=== PATIENT | female | born 1960 | race Caucasian/White ===

== ENCOUNTER 2020-09-25 21:54 | Emergency (ER) | payer BC, MEDICAID, SELFPAY ==
[2018-10-11 16:23] VITALS: BMI 23.1
[2020-09-25 21:55] VITALS: BP 141/66; PULSE 81; RESP 16; TEMP 36.4; O2SAT 95; BMI 23.1
--- NOTE | 2020-09-25 22:31 | RAD_ITS ---
INDICATION: fall, pain EXAMINATION/TECHNIQUE: X-RAY - LEFT XR Hip Unilateral with Pelvis when performed; 2-3 Views COMPARISON: None. FINDINGS: No acute fracture or malalignment. No blastic or lytic lesions. Mild degenerative changes of the hips and lower lumbar spine. The soft tissues are unremarkable. RAD/HIP, UNI W/ Pelvis 2-3 Views IMPRESSION: No acute radiographic abnormalities. Mild degenerative changes of the hips and lower lumbar spine. Electronically Signed: Yair Schwarz MD at 23:27 EDT Tel , Service support ,
[2020-09-25] MEDS: oxyCODONE 5 MG Tablet PO (22:50)
--- NOTE | 2020-09-25 22:59 | ED.DCSUM_ITS ---
- ER Visit Summary Date of Service: 09/25/20 Chief Complaint: Left hip/groin pain History of Present Illness: The patient is a 60 F who has left hip and groin pain. She states that 5 days ago she was at a restaurant and slipped in the bathroom and her left leg slipped out. She is having pain worse with walking. She took nothing for it at home but then tells me she took ibuprofen. She denies any knee pain or back pain except her chronic back pain. She states that she is in pain management in [place] but has been stretching out her medications that she moves her. To [place]. Physical Examination: Vital signs are reviewed. Left hip exam reveals some tenderness in the left groin. There is no hip over the greater trochanter. There is no pain with logroll. She has 2+ DP pulses. Her leg is warm to touch. Her pulses are equal in her feet. Test Results: Left hip x-ray was performed and it shows degenerative changes with no fracture or dislocation. Emergency Department Course and Treatment: Patient was given a dose of oxycodone here. She likely has a strain of the groin due to the mechanism of the fall. I do not suspect any occult fractures at this time. Patient will be discharged with Lidoderm patches. She will follow-up with her PCP. Treatment Plan: [] Disposition: Discharge Impression: Left groin strain This note was generated with tritrue dictation software. It may contain incorrect words, spelling, and punctuation that were not noted in review of the chart prior to signing ED Disposition - Plan for ED Patient: Disposition: Home or Assisted Living Instructions: ED Groin Strain Prescriptions: Lidocaine [Lidoderm Patch] 1 patch TOPICAL DAILY #10 patch Transmission Status: Pending to [id number] Referrals: NOT,DEFINED [NON-STAFF] - Ajay Jones DO [STAFF PHYSICIAN] -
[2020-09-25 23:12] VITALS: BP 129/85; PULSE 70; RESP 17; TEMP 36.6; O2SAT 98
[2020-09-25 23:43] VITALS: BP 130/88; PULSE 78; RESP 18; TEMP 36.6; O2SAT 97
--- NOTE | 2020-09-25 23:49 | ED.RN ---
Called her father and he states he is on his way to get the patient
== END 2020-09-25 23:55 | disposition home or self-care (01) ==
PROVIDERS: Emergency Provider Emergency Medicine
DX: S39.011A Strain of muscle, fascia and tendon of abdomen, initial encounter (principal); W01.0XXA Fall on same level from slipping, tripping and stumbling without subsequent striking against object, initial encounter; Y93.9 Activity, unspecified; Y92.511 Restaurant or cafe as the place of occurrence of the external cause; Y99.8 Other external cause status; J44.9 Chronic obstructive pulmonary disease, unspecified; Z72.0 Tobacco use; Z79.899 Other long term (current) drug therapy
CPT/HCPCS: 73502; 99282

== ENCOUNTER → 2020-10-20 12:35 | Outpatient (CLI) | payer BC, MEDICAID, SELFPAY ==
[2020-09-25 21:55] VITALS: BMI 23.1
--- NOTE | 2020-10-20 12:40 | RAD_ITS ---
STUDY: X-RAY - LUMBAR SPINE REASON FOR EXAM: Female, 60 years old. BACK PAIN TECHNIQUE: 2 view(s) of the lumbar spine were obtained. COMPARISON: None FINDINGS: Normal lumbar lordosis. There is no substantial scoliosis. There is a normal alignment of the vertebrae from L1 to L5. There is a bilateral pars defect, and grade 1 spondylolisthesis at L5/S1. Normal vertebral bodies and endplates. Mild disc space narrowing throughout the lumbar spine. There is no demonstrated fracture. There is atherosclerotic calcification of the abdominal aorta without a demonstrated aneurysm. RAD/Lumbar Spine 2 or 3 Views IMPRESSION: Mild degenerative changes, no demonstrated fracture Bilateral pars defect with grade 1 spondylolisthesis at L4-5 Electronically Signed: Ángel Good MD at 13:07 EDT , Service support ,
--- NOTE | 2020-10-20 12:42 | RAD_ITS ---
STUDY: X-RAY - CERVICAL SPINE REASON FOR EXAM: Female, 60 years old. NECK PAIN TECHNIQUE: 3 view(s) of the cervical spine were obtained. COMPARISON: None FINDINGS: Normal anterior atlantoaxial articulation. Normal odontoid process. There is straightening of the normal cervical lordosis. Normal vertebral bodies and endplates. Normal disc space heights. The soft tissue structures are unremarkable. RAD/Cerv Spine 2 or 3 Views IMPRESSION: Normal x-ray examination of the visualized cervical spine. Electronically Signed: Ángel Good MD at 13:08 EDT , Service support ,
== END ==
PROVIDERS: Referring Provider Anesthesiology Pain Medicine; Visit Provider Anesthesiology Pain Medicine
DX: M54.2 Cervicalgia (principal); M43.16 Spondylolisthesis, lumbar region
CPT/HCPCS: 72040; 72100

== ENCOUNTER 2020-10-21 13:51 | Emergency (ER) | payer BC, MEDICAID, SELFPAY ==
[2020-10-21 13:52] VITALS: BP 152/90; PULSE 106; RESP 17; TEMP 36.4; O2SAT 96; BMI 23.0
--- NOTE | 2020-10-21 14:35 | EDS_ITS ---
HPI History of Present Illness Chief Complaint: Back Informant: patient Onset/Context/Timing Timing: Continuous Current Severity: Mild Maximum Severity: Mild Narrative Narrative: 60-year-old female has chronic back pain has been treated with narcotic pain medications through pain management in [place] for the last 35 years. Patient was seen pain management in [place] recently moved to [place] to help take care of her parents. The pain management doctor she sees here in [place] is Dr. Yuen and he did not feel was appropriate to keep her on her regime of morphine 3 times a day. Patient states that she has chronic neck and back pain. She is never had any neck or back surgery. States she has not had any narcotic pain medication for the last 3 days. She is having withdrawal symptoms such as not nausea, vomiting and diarrhea. Prior similar symptoms: Yes Recent Illness/Hospitalization: No PFSH PFSH Medical History Back pain Shoulder pain Home Medications chlorzoxazone 500 mg tablet 1 tablet PO TID PRN 30 Days #60 tab 10/11/18 [History Last Taken Unknown] morphine 30 mg tablet,extended release 15 mg PO TID PRN 30 Days #90 tab 10/11/18 [History Last Taken Unknown] albuterol sulfate 2 puff INHALATION Q4H PRN PRN 09/25/20 [History Last Taken Unknown] ipratropium-albuterol 1 puff Q6H PRN PRN 09/25/20 [History Last Taken Unknown] lidocaine 1 patch TOPICAL DAILY #10 patch 09/25/20 [Rx Last Taken Unknown] ondansetron HCl [Zofran] 4 mg PO Q6H PRN #10 tab 10/21/20 [Rx Last Taken Unknown] Allergy/AdvReac Type Severity Reaction Status Date / Time Opioids-Methadone and Related Allergy Unknown Vomiting Verified 09/25/20 21:57 mercury (elemental) Allergy Hives Verified 10/21/20 13:57 Sulfa (Sulfonamide Allergy Hives Verified 10/21/20 13:57 Antibiotics) Surgical History History of bladder surgery History of tubal ligation Social History Smoking Status: Former smoker alcohol intake: never ROS ROS ED ROS Narrative 60-year-old female no recent illness is having withdrawal symptoms consistent with being out of her pain meds for the last 3 days. Review of Systems ROS Unobtainable: Denies due to encephalopathy Constitutional Constitutional ED: Denies fever(s) Eyes Eyes: Denies change in vision ENT ENT ED: Denies sore throat Cardiovascular Cardiovascular: Denies chest pain Respiratory/Chest Respiratory/Chest: Denies dyspnea Gastrointestinal Gastrointestinal: Reports diarrhea, nausea and vomiting; Denies abdominal pain Genitourinary Genitourinary ED: Denies dysuria Musculoskeletal Musculoskeletal: Denies myalgias Integumentary Denies rash Neurologic Neurologic: Denies headache(s) Psychiatric Psychiatric: Denies depression Endocrine Endocrinology: Denies polyuria Allergic/Immunologic Allergic/Immunologic ED: Denies urticaria EXAM Physical Exam Narrative Exam Narrative: 60-year-old no acute distress. Vital signs stable afebrile. Patient does not look septic or toxic. She is not dehydrated. Exam basically unremarkable. Const Vital Signs: 10/21/20 13:52 Temperature 97.6 F L Temperature Source Temporal Pulse Rate 106 H Respiratory Rate 17 Blood Pressure 152/90 H Blood Pressure Mean 110 Pulse Ox 96 Oxygen Delivery Method Room Air Positive well nourished and well developed General Appearance ED: well developed HEENT Reports moist mucous membranes Negative for trauma or tenderness Eyes PERRL and EOMs intact bilaterally Neck no lymphadenopathy, supple and no JVD Chest Wall inspection of chest normal Resp normal respiratory effort and clear to auscultation bilaterally Cardio regular rhythm and no murmurs; Negative for regular rate Rate: tachycardic GI normal to inspection, nondistended, normoactive bowel sounds, non-tender and non-distended Palpation: soft Back/Spine no CVA tenderness Back/Spine Narrative: Diffuse musculoskeletal tenderness of the back. Extremity normal to inspection Neuro oriented x3 and CN's II-XII intact bilaterally Sensorium / Orientation: alert; Negative for orientation impaired, lethargic or stuporous Motor Exam: strength 5/5 throughout Psych mental status grossly normal Skin no rashes or lesions noted MDM MDM MDM Narrative Medical decision making narrative: Patient with a 35-year history of chronic pain management treatment. Out of her meds. Symptoms consistent with withdrawal. Requesting that I write her for chronic pain medications. Her pain management physician has already refused this treatment option. I explained the patient we do not treat chronic pain through the emergency department in a long- term chronic narcotic prescription without to be taken care of either through her pain management physicians or her primary care physicians. She will be given 2 [place] here for pain and an IM injection of Zofran for nausea. Discharged with a prescription for Zofran and follow-up with her primary care physician and/or pain management. I did discuss with the patient and strongly encouraged her to consider detox inpatient or outpatient she basically wants nothing to do with that treatment option. She did not want admission. She wants to be transferred to another facility to have someone write her for long- term narcotic medications. Discharge Plan Triage Chief Complaint: Back ED Provider: Horacio Fisher Dx/Rx/DC Orders Clinical Impression: Chronic pain syndrome, Chronic back pain Instructions: ED Back Pain (Acute or Chronic) Prescriptions: New ondansetron HCl [Zofran] 4 mg tablet 4 mg PO Q6H PRN (Reason: nausea and vomiting) Qty: 10 RF: 0 No Action chlorzoxazone 500 mg tablet 1 tablet PO TID PRN (Reason: Not Specified) 30 Days Qty: 60 RF: 0 morphine 30 mg tablet extended release 15 mg PO TID PRN (Reason: Pain 1-10 Or Fever) 30 Days Qty: 90 RF: 0 ipratropium-albuterol 1 PUFF inhaler 1 puff Q6H PRN PRN (Reason: Cough) RF: 0 albuterol sulfate 1 PUFF inhaler 2 puff INHALATION Q4H PRN PRN (Reason: Cough) RF: 0 lidocaine 1 PATCH patch 1 patch TOPICAL DAILY Qty: 10 RF: 0 Primary Care Provider: Care Physician,No Primary Referrals: Clement River MD [NON-STAFF] - As soon as possible Care Physician,No Primary [Primary Care Provider] - Activity Restrictions/Additional Instructions: Follow-up with either your pain management doctor or your primary care physician for discussion of best options for chronic pain management. Zofran as needed for nausea. Disposition Disposition: Home, self care
[2020-10-21] MEDS: HYDROcodone Bitartrate/Apap 5/325 Tablet PO (15:48)
[2020-10-21] MEDS: Ondansetron 4 MG/2 ML Vial IM (15:48)
[2020-10-21 15:57] VITALS: BP 156/87; PULSE 102; RESP 19; O2SAT 95
== END 2020-10-21 16:06 | disposition home or self-care (01) ==
LOC: ED 14:48
PROVIDERS: Emergency Provider Emergency Medicine
DX: M54.9 Dorsalgia, unspecified (principal); G89.4 Chronic pain syndrome; Z87.891 Personal history of nicotine dependence
CPT/HCPCS: 96372; 99283; J2405

== ENCOUNTER 2022-08-18 10:56 | Emergency (ER) | payer MEDICAID, SELFPAY ==
[2022-08-18 10:57] VITALS: BP 160/83; PULSE 109; RESP 14; TEMP 36.9; O2SAT 95; BMI 25.1
[2022-08-18 11:00] VITALS: BP 145/93; PULSE 104; RESP 16; TEMP 36.8; O2SAT 95
[2022-08-18 11:21] LABS: Absolute Lymphocyte Count 1.74 X10^3/uL (0.83-4.51); Absolute Neutrophil Count 3.6 X10^3/uL (2.0-7.7); Basophil# 0.03 X10^3/uL; Basophil% 0.5 % (0-1); Eosinophil# 0.48 X10^3/uL; Eosinophils% 7.6 % (0-5); Hematocrit 47.2 % (37-47); Hemoglobin 15.6 g/dL (12.0-15.0); Lymphocyte # 1.74 X10^3/ul (0.83-4.51); Lymphocyte % 27.5 % (19-41); Mean Corp Hgb Conc 33.1 g/dL (32-36); Mean Corpuscular Volume 96.7 fL (81-99); Mean Platelet Vol. 9.4 fl (6.2-12.0); Monocyte# 0.43 X10^3/uL; Monocyte% 6.8 % (0-10); NRBC Flagged by Analyzer 0 % (0-5); Neutrophil # 3.62 X10^3/uL (2.7-7.7); Neutrophil % 57.3 % (47-70); Platelet Count 341 K/mm3 (150-450); RBC Distribution Width CV 12.6 % (11.6-14.6); RBC Distribution Width SD 45.1 fl (35.1-43.9); Red Blood Count 4.88 M/mm3 (4.2-5.4); White Blood Count 6.3 K/mm3 (4.4-11.0)
--- NOTE | 2022-08-18 11:25 | ED.VIS.DYS ---
HPI <PHUC Tobias - Last Filed: 08/18/22 15:32> History of Present Illness Chief Complaint: Shortness of Breath Narrative Narrative: Patient presenting today with worsening shortness of breath that she has had for the past 3 weeks. She states that she has been having a productive cough as well along with a decreased appetite, increased urination, increased bouts of incontinence, and urinary hesitancy. Patient does have a history of COPD and does not use oxygen at home. She denies any fever, chills, chest pain, and abdominal pain. Yesterday, she stated that she had two episodes of nausea and vomiting but does not feel nauseous today. PFSH <PHUC Tobias - Last Filed: 08/18/22 15:32> [facility] Medical History Back pain COPD (chronic obstructive pulmonary disease) Shoulder pain Spondylitis Home Medications ipratropium 20 mcg-albuterol 100 mcg/actuation mist for inhalation 1 puff inhalation Q6H PRN PRN Cough 09/25/20 [History Last Taken Unknown] ondansetron HCl 4 mg tablet (Zofran) 4 mg PO Q6H PRN nausea and vomiting #10 tabs 10/21/20 [Rx Last Taken Unknown] albuterol sulfate 90 mcg/actuation aerosol inhaler (Ventolin HFA) 1 - 2 puff inhalation Q4H PRN PRN Wheezing ##1 08/18/22 [Rx Last Taken Unknown] budesonide-formoterol HFA 80 mcg-4.5 mcg/actuation aerosol inhaler (Symbicort) 2 puff inhalation BID 08/18/22 [History Last Taken Unknown] chlorzoxazone 500 mg tablet 750 mg PO Q8H muscle spasm 08/18/22 [History Last Taken Unknown] doxycycline monohydrate 100 mg capsule 100 mg PO BID #14 CAPSULES 08/18/22 [Rx Last Taken Unknown] ipratropium 20 mcg-albuterol 100 mcg/actuation mist for inhalation (Combivent Respimat) 1 puff inhalation Q4H 08/18/22 [History Last Taken Unknown] morphine 15 mg immediate release tablet 15 mg PO Q8H PRN Breakthrough Pain 08/18/22 [History Last Taken Unknown] morphine 15 mg tablet,extended release 15 mg PO TID 08/18/22 [History Last Taken Unknown] prednisone 10 mg tablet 10 mg PO UD #33 tabs 08/18/22 [Rx Last Taken Unknown] Allergy/AdvReac Type Severity Reaction Status Date / Time mercury (elemental) Allergy Hives Verified 10/21/20 13:57 Sulfa (Sulfonamide Allergy Hives Verified 10/21/20 13:57 Antibiotics) Opioids-Methadone and Related AdvReac Unknown Vomiting Verified 08/18/22 11:02 Surgical History History of bladder surgery History of tubal ligation Social History Smoking Status: Former smoker alcohol intake: never ROS <PHUC Tobias - Last Filed: 08/18/22 15:32> ROS ED Constitutional Constitutional ED: Denies chills, fever(s) or sweats Eyes Eyes: Denies blurry vision or diplopia ENT ENT ED: Denies rhinorrhea or sore throat Cardiovascular Cardiovascular: Denies chest pain or palpitations Respiratory/Chest Respiratory/Chest: Reports cough, dyspnea, dyspnea on exertion and wheezing Gastrointestinal Gastrointestinal: Denies abdominal pain, constipation, diarrhea, nausea or vomiting Genitourinary Genitourinary ED: Reports urinary frequency and urinary urgency; Denies dysuria or hematuria Musculoskeletal Musculoskeletal: Denies arthralgias, back pain, myalgias or neck pain Integumentary Denies abscess, Abrasions or rash Neurologic Neurologic: Denies confusion, dizziness or paresthesias Psychiatric Psychiatric: Denies anxiety, depression, suicidal ideation or suicidal thoughts EXAM <PHUC Tobias - Last Filed: 08/18/22 15:32> Physical Exam Const Vital Signs: 08/18/22 10:57 08/18/22 11:00 08/18/22 11:02 Temperature 98.4 F 98.2 F Temperature Source Oral Oral Pulse Rate 109 H 104 H Respiratory Rate 14 16 Respiratory Effort Short of Breath Labored Respiratory Depth Deep Respiratory Pattern Normal Blood Pressure 160/83 H 145/93 H Blood Pressure Mean 108 110 Pulse Ox 95 95 Oxygen Delivery Method Room Air Room Air Oxygen Flow Rate (L/min) 08/18/22 11:32 08/18/22 11:32 08/18/22 13:00 Temperature Temperature Source Pulse Rate 75 71 Respiratory Rate 14 19 H Respiratory Effort Respiratory Depth Respiratory Pattern Normal Blood Pressure 131/58 H Blood Pressure Mean 82 Pulse Ox 93 89 Oxygen Delivery Method Nasal Cannula Room Air Oxygen Flow Rate (L/min) 3 08/18/22 13:00 08/18/22 15:00 08/18/22 15:00 Temperature 97.9 F Temperature Source Oral Pulse Rate 70 72 72 Respiratory Rate 17 19 H 19 H Respiratory Effort Respiratory Depth Respiratory Pattern Blood Pressure 131/58 H 117/69 117/69 Blood Pressure Mean 82 85 Pulse Ox 88 89 89 Oxygen Delivery Method Room Air Room Air Oxygen Flow Rate (L/min) 08/18/22 14:00 Temperature 98.0 F Temperature Source Oral Pulse Rate 72 Respiratory Rate 19 H Respiratory Effort Respiratory Depth Respiratory Pattern Blood Pressure 117/69 Blood Pressure Mean 85 Pulse Ox 89 Oxygen Delivery Method Room Air Oxygen Flow Rate (L/min) Positive well nourished and well developed General Appearance ED: well developed HEENT Reports normocephalic and head/scalp atraumatic Mouth ED: Yes moist mucous membranes normal Eyes PERRL and EOMs intact bilaterally Neck full ROM and supple Chest Wall inspection of chest normal Resp Auscultation: rhonchi lower bilaterally and wheezes expiratory wheezes Cardio regular rate and regular rhythm GI soft to palpation, non-tender, non-distended and no masses Back/Spine normal ROM and normal to inspection Extremity normal to inspection and full ROM General Extremety ED: Negative for edema General Extremity: Negative for edema Neuro oriented x3, CN's II-XII intact bilaterally, moves all extremities, no focal motor deficits and no sensory deficits noted Sensorium / Orientation: awake and alert Psych mental status grossly normal and thought process normal Skin no rashes or lesions noted and no wounds <Dr. Kieran Manzo MD - Last Filed: 08/18/22 14:46> Physical Exam Const Vital Signs: 08/18/22 10:57 08/18/22 11:00 08/18/22 11:02 Temperature 98.4 F 98.2 F Temperature Source Oral Oral Pulse Rate 109 H 104 H Respiratory Rate 14 16 Respiratory Effort Short of Breath Labored Respiratory Depth Deep Respiratory Pattern Normal Blood Pressure 160/83 H 145/93 H Blood Pressure Mean 108 110 Pulse Ox 95 95 Oxygen Delivery Method Room Air Room Air Oxygen Flow Rate (L/min) 08/18/22 11:32 08/18/22 11:32 08/18/22 13:00 Temperature Temperature Source Pulse Rate 75 71 Respiratory Rate 14 19 H Respiratory Effort Respiratory Depth Respiratory Pattern Normal Blood Pressure 131/58 H Blood Pressure Mean 82 Pulse Ox 93 89 Oxygen Delivery Method Nasal Cannula Room Air Oxygen Flow Rate (L/min) 3 08/18/22 13:00 08/18/22 15:00 08/18/22 15:00 Temperature 97.9 F Temperature Source Oral Pulse Rate 70 72 72 Respiratory Rate 17 19 H 19 H Respiratory Effort Respiratory Depth Respiratory Pattern Blood Pressure 131/58 H 117/69 117/69 Blood Pressure Mean 82 85 Pulse Ox 88 89 89 Oxygen Delivery Method Room Air Room Air Oxygen Flow Rate (L/min) 08/18/22 14:00 Temperature 98.0 F Temperature Source Oral Pulse Rate 72 Respiratory Rate 19 H Respiratory Effort Respiratory Depth Respiratory Pattern Blood Pressure 117/69 Blood Pressure Mean 85 Pulse Ox 89 Oxygen Delivery Method Room Air Oxygen Flow Rate (L/min) MDM <PHUC Tobias - Last Filed: 08/18/22 15:32> [facility] Narrative Medical decision making narrative: Presenting today with increased shortness of breath that she has had over the past 3 weeks. Patient is 93% on room air on examination and has audible expiratory wheezes. Labs have been obtained and she has been given a DuoNeb breathing treatment. Chest x-ray obtained to rule out infiltrate. Chest x-ray does show a pulmonary nodule this is been discussed with patient, she has been instructed to have this followed up with. Patient has been using her inhalers incorrectly. We have educated her on correct inhaler use and how often to use each one. I do not feel it is necessary to test for COVID or flu as patient has been having the symptoms for the past 3 weeks. Patient has been given Solu-Medrol and additional breathing treatments. Patient does not have a chemical process operator, we have referred her to one. We have ambulated her and patient remained above 90% on room air. On reexamination patient states she is feeling much better and is no longer feeling short of breath. Symptoms can be attributed to a COPD exacerbation. She will be given prednisone and doxycycline. She is to follow-up with her PCP and pulmonology. She will be discharged home in stable condition and is comfortable with plan. Lab Data Labs: Laboratory Results - last 24 hr 08/18/22 08/18/22 08/18/22 11:00 11:00 12:20 WBC 6.3 RBC 4.88 Hgb 15.6 H Hct 47.2 H MCV 96.7 MCH 32.0 MCHC 33.1 RDW Std Deviation 45.1 H RDW Coeff of [place]aine 12.6 Plt Count 341 MPV 9.4 Immature Gran % (Auto) 0.300 Neut % (Auto) 57.3 Lymph % (Auto) 27.5 [place] % (Auto) 6.8 Eos % (Auto) 7.6 H Baso % (Auto) 0.5 Absolute Neuts (auto) 3.6 Absolute Lymphs (auto) 1.74 Nucleated RBC % 0 Sodium 142 Potassium 3.6 Chloride 110 H Carbon Dioxide 25.0 Anion Gap 7 BUN 17 Creatinine 1.35 H Estim Creat Clear Calc 33.74 Est GFR (MDRD) Af Amer 51 L Est GFR (MDRD) Non-Af 42 L BUN/Creatinine Ratio 12.6 Glucose 116 H Calcium 9.1 Urine Color Yellow Urine Clarity Sl. Cloudy Urine pH 6.0 Ur Specific [place] 1.015 Urine Protein 100 H Urine Glucose (UA) Normal Urine Ketones 5 H Urine Occult Blood Negative Urine Nitrite Negative Urine Bilirubin Negative Urine Urobilinogen 1 H Ur Leukocyte Esterase 25 H Urine RBC 0 SEEN Urine WBC 0-5 SEEN Ur Squamous Epith Cells 0-5 SEEN Urine Bacteria 1+ Urine Mucus 0 SEEN Radiography Chest X-Ray - ED: Read by ED Physician and Read by Radiologist Diagnostic Testing: Clinical Impression(s) from Imaging Studies Chest X-Ray 08/18/22 11:44 IMPRESSION: Possible pulmonary nodule at the right lung base; recommend follow-up or CT. Electronically Signed: Radha Jones MD at 12:04 EDT , EKG Initial EKG: Comments: 85 bpm, sinus rhythm with occasional PVCs, no ST elevation. Reviewed and interpreted by attending ED physician. <Dr. Kieran Manzo MD - Last Filed: 08/18/22 14:46> [facility] Lab Data Attestation: I reviewed the patient's lab results. Labs: Laboratory Results - last 24 hr 08/18/22 08/18/22 08/18/22 11:00 11:00 12:20 WBC 6.3 RBC 4.88 Hgb 15.6 H Hct 47.2 H MCV 96.7 MCH 32.0 MCHC 33.1 RDW Std Deviation 45.1 H RDW Coeff of [place] 12.6 Plt Count 341 MPV 9.4 Immature Gran % (Auto) 0.300 Neut % (Auto) 57.3 Lymph % (Auto) 27.5 [place] % (Auto) 6.8 Eos % (Auto) 7.6 H Baso % (Auto) 0.5 Absolute Neuts (auto) 3.6 Absolute Lymphs (auto) 1.74 Nucleated RBC % 0 Sodium 142 Potassium 3.6 Chloride 110 H Carbon Dioxide 25.0 Anion Gap 7 BUN 17 Creatinine 1.35 H Estim Creat Clear Calc 33.74 Est GFR (MDRD) Af Amer 51 L Est GFR (MDRD) Non-Af 42 L BUN/Creatinine Ratio 12.6 Glucose 116 H Calcium 9.1 Urine Color Yellow Urine Clarity Sl. Cloudy Urine pH 6.0 Ur Specific [place] 1.015 Urine Protein 100 H Urine Glucose (UA) Normal Urine Ketones 5 H Urine Occult Blood Negative Urine Nitrite Negative Urine Bilirubin Negative Urine Urobilinogen 1 H Ur Leukocyte Esterase 25 H Urine RBC 0 SEEN Urine WBC 0-5 SEEN Ur Squamous Epith Cells 0-5 SEEN Urine Bacteria 1+ Urine Mucus 0 SEEN Radiography Chest X-Ray - ED: Read by ED Physician, No Acute Disease, Chronic Changes and No Infiltrates Diagnostic Testing: Clinical Impression(s) from Imaging Studies Chest X-Ray 08/18/22 11:44 IMPRESSION: Possible pulmonary nodule at the right lung base; recommend follow-up or CT. Electronically Signed: Radha Jones MD at 12:04 EDT , EKG Initial EKG: Attestation: I personally reviewed and interpreted this EKG as follows: Interpretation: Sinus Rhythm and No Acute Injury Pattern Treatment and Re-Evaluation Comments:: Seen and evaluated independently and in conjunction with physician dental laboratory assistant. Agree with notes above unless documented otherwise. Patient has basically been having a COPD exacerbation gradually worsening over the past 3 weeks. We did some labs, EKG which is unremarkable, and a chest x-ray which on my interpretation 2 views show no evidence of pneumonia. Radiology was in agreement. Speaking in full sentences, prolonged expiratory phase, expiratory wheezes but no rales or rhonchi on exam. Heart regular, no peripheral edema, JVD, or calf tenderness. Radiology also saw a pulmonary nodule on her chest x-ray. I discussed this with her, it is not spiculated and extremely suspicious looking, however in a smoker with COPD she is at risk for lung cancer which we discussed. She needs to follow-up with pulmonology. 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 She was seen a chemical process operator there. She is using her inhalers incorrectly, she is using her Spiriva as a rescue inhaler, we discussed that with her and try to educate her and prescribed her an albuterol rescue, in addition to antibiotics and prednisone. Discharge Plan Triage Chief Complaint: Shortness of Breath ED Midlevel Provider: Anum Onofre ED Provider: Kieran Manzo Dx/Rx/DC Orders Clinical Impression: COPD exacerbation, Pulmonary nodule Instructions: ED COPD Flare Prescriptions: New prednisone 10 mg tablet 10 mg PO UD Qty: 33 0RF Rx Instructions: Take 4 tablets daily for 3 days, then 3 daily for 3 days, then 2 daily for 3 days, then 1 a day for 3 days then 1 QOD for 3 doses. doxycycline monohydrate 100 mg capsule 100 mg PO BID Qty: 14 0RF albuterol sulfate [Ventolin HFA] 90 mcg/actuation HFA aerosol inhaler 1 - 2 puff inhalation Q4H PRN PRN (Reason: Wheezing) Qty: 1 0RF No Action ipratropium-albuterol 1 PUFF inhaler 1 puff inhalation Q6H PRN PRN (Reason: Cough) Label Comments: INHALE 1 PUFF BY MOUTH FOUR TIMES DAILY NEEDED FOR SHORTNESS OF BREATH ondansetron HCl [Zofran] 4 mg tablet 4 mg PO Q6H PRN (Reason: nausea and vomiting) Qty: 10 0RF chlorzoxazone 500 mg tablet 750 mg PO Q8H Label Comments: TAKE 1 &1/2 (ONE & ONE-HALF) TABLETS BY MOUTH THREE TIMES DAILY NEEDED FOR MUSCLE SPASM morphine 15 mg tablet extended release 15 mg PO TID Label Comments: TAKE 1 TABLET BY MOUTH EVERY 8 HOURS FOR PAIN morphine 15 mg tablet 15 mg PO Q8H PRN (Reason: Breakthrough Pain) Label Comments: TAKE 1 TABLET BY MOUTH THREE TIMES DAILY NEEDED FOR PAIN FOR UP 30 DAYS budesonide-formoterol [Symbicort] 80-4.5 mcg/actuation Hfa Aerosol Inhaler 2 puff INHALATION BID Combivent Respimat 20-100 mcg/actuation Mist 1 puff INHALATION Q4H Primary Care Provider: Tracie Patel Referrals: Lamont Whalen MD [Non-Staff] - 3-5 Days NOT,DEFINED [Non-Staff] - Activity Restrictions/Additional Instructions: You can use either the albuterol or Combivent as a rescue inhaler. Please call this week to schedule an appointment to follow-up with pulmonology. Please return for any worsening of symptoms. Disposition Disposition: Home, Self Care Discharge Date/Time: 08/18/22 15:07
[2022-08-18] MEDS: Ipratropium/Albuterol Sulfate 3 ML AMPUL.NEB INHALATION (11:29)
[2022-08-18 11:32] VITALS: PULSE 75; RESP 14; O2SAT 93
[2022-08-18 11:32] LABS: Anion Gap 7 (5-15); BUN 17 mg/dL (7-18); BUN/Creat Ratio 12.6 RATIO (10-20); Calcium,Total 9.1 mg/dL (8.5-10.1); Chloride 110 mmol/L (98-107); Creatinine, Serum 1.35 mg/dL (0.55-1.02); EST Glomerular Filtration Rate 42 mL/min (>60); Est Glom Filt Rate - Afr Amer 51 mL/min (>60); Estimated Creatinine Clearance 33.74 ml/min; Glucose 116 mg/dL (74-106); Potassium 3.6 mmol/L (3.5-5.1); Sodium Level 142 mmol/L (136-145)
--- NOTE | 2022-08-18 11:44 | RAD_ITS ---
HISTORY: SOB. TECHNIQUE: XR Chest 2 Views. COMPARISON: None. FINDINGS: CARDIOMEDIASTINAL BORDERS: Cardiac silhouette within normal limits in size. Calcification of the aortic knob. Calcified subcarinal lymph node. LUNGS: 1.2 cm nodular opacity at the right hemidiaphragm. PLEURA: No pleural effusion or pneumothorax seen. OSSEOUS STRUCTURES: Mild degenerative change. RAD/Chest PA and Lateral IMPRESSION: Possible pulmonary nodule at the right lung base; recommend follow-up or CT. Electronically Signed: Radha Jnoes MD at 12:04 EDT ,
[2022-08-18 12:23] LABS: Mucous, Urine 0 SEEN /hpf (<or=2+); Red Blood Cells-Urine 0 SEEN /hpf (0-5)
[2022-08-18 12:36] LABS: Color, Urine Yellow (Yellow); Glucose, Dipstick Normal (Normal); Ketone-Dipstick 5 mg/dl (Negative); Leukocyte Esterase-Dipstick 25 /ul (Negative); Nitrite-Dipstick Negative (Negative); Occult Blood-Urine Negative /ul (Negative); Protein-Dipstick 100 mg/dl (Negative); Specific Gravity, Urine 1.015 (1.002-1.030); Urine Bilirubin Dipstick Negative (Negative); Urine Clarity Sl. Cloudy (Clear); Urine Urobilinogen 1 mg/dl (Normal)
[2022-08-18 12:48] LABS: Bacteria 1+ /hpf (None Seen); Squamous Epithelial Cells - UA 0-5 SEEN /hpf (5-10); White Blood Cells 0-5 SEEN /hpf (0-5)
[2022-08-18] MEDS: MethylPREDNISolone 125 MG/2 ML Vial IV (12:56)
[2022-08-18 13:00] VITALS: BP 131/58; PULSE 70; PULSE 71; RESP 17; RESP 19; TEMP 36.6; O2SAT 88; O2SAT 89
[2022-08-18] MEDS: Albuterol 2.5 MG/3 ML VIAL.NEB. INHALATION ×2 (13:11)
--- NOTE | 2022-08-18 13:19 | EKG12_ITS ---
Test Reason : SOB Blood Pressure : / mmHG Vent. Rate : 097 BPM Atrial Rate : 097 BPM P-R Int : 122 ms QRS Dur : 076 ms QT Int : 346 ms P-R-T Axes : 078 064 078 degrees QTc Int : 439 ms Normal sinus rhythm with sinus arrhythmia Nonspecific ST abnormality Abnormal ECG Confirmed by POP GARCIA, CRISTY ([id number]), film and video editor DAYNA SAHU ([id number]) on 08/22/2022 12:16:33 P M Referred By: Confirmed By:LUCHO LORD MD
--- NOTE | 2022-08-18 13:31 | NURSING ---
pt had coughing fit and dropped to 83% on ra. o2 reapplied to recover and pt back up to 96% quickly within couple minutes. pt up to amb in halls to see if maintains. desats with walking to 90% and hr 95. will monitor
[2022-08-18 14:00] VITALS: BP 117/69; PULSE 72; RESP 19; TEMP 36.7; O2SAT 89
[2022-08-18 15:00] VITALS: BP 117/69; PULSE 72; RESP 19; O2SAT 89
== END 2022-08-18 15:07 | disposition home or self-care (01) ==
PROVIDERS: Physician Assistant; Emergency Provider Emergency Medicine; PCP Nurse Practitioner Family; Visit Provider Emergency Medicine
DX: J44.1 Chronic obstructive pulmonary disease with (acute) exacerbation (principal); R91.1 Solitary pulmonary nodule; Z87.891 Personal history of nicotine dependence
CPT/HCPCS: 71046; 80048; 81001; 85025; 93005; 94640; 96374; 99283; A4216

== ENCOUNTER 2022-11-27 01:04 | Emergency (ER) | payer MEDICAID, SELFPAY ==
[2022-11-27 01:05] VITALS: BP 157/72; PULSE 67; RESP 18; TEMP 36.9; O2SAT 95; BMI 25.3
--- NOTE | 2022-11-27 01:20 | EX.ED.VIS.HA ---
HPI History of Present Illness Chief Complaint: Headache Informant: patient Narrative Narrative: Patient presents with a left-sided headache. Patient states that this recent she noticed some tingling around the left side of her face mostly in the area of the left cheek. After about 2 hours she started to get pain behind her left eye. The numbness is gone. She never had facial droop or weakness. She had no other neurologic symptoms. She states the pain in her eye area waxes and wanes. She does have some photophobia but no actual loss of vision. No discoordination. She has had migraines before but does not think this is a migraine. She has no trauma. No tearing or discharge from the eye. The headache is not the worst she has ever had. It was not sudden onset in fact it took a day or 2 to get up to its maximal. Its been waxing and waning since. No change in her medications. She is on chronic morphine and muscle relaxants but that is for cervical pain. That does not seem to be exacerbated currently. No history of glaucoma. [facility] Medical History Back pain COPD (chronic obstructive pulmonary disease) Shoulder pain Spondylitis Home Medications ipratropium 20 mcg-albuterol 100 mcg/actuation mist for inhalation 1 puff inhalation Q6H PRN PRN Cough 09/25/20 [History Last Taken Unknown] ondansetron HCl 4 mg tablet (Zofran) 4 mg PO Q6H PRN nausea and vomiting #10 tabs 10/21/20 [Rx Last Taken Unknown] albuterol sulfate 90 mcg/actuation aerosol inhaler (Ventolin HFA) 1 - 2 puff inhalation Q4H PRN PRN Wheezing ##1 08/18/22 [Rx Last Taken Unknown] budesonide-formoterol HFA 80 mcg-4.5 mcg/actuation aerosol inhaler (Symbicort) 2 puff inhalation BID 08/18/22 [History Last Taken Unknown] chlorzoxazone 500 mg tablet 750 mg PO Q8H muscle spasm 08/18/22 [History Last Taken Unknown] doxycycline monohydrate 100 mg capsule 100 mg PO BID #14 CAPSULES 08/18/22 [Rx Last Taken Unknown] ipratropium 20 mcg-albuterol 100 mcg/actuation mist for inhalation (Combivent Respimat) 1 puff inhalation Q4H 08/18/22 [History Last Taken Unknown] morphine 15 mg immediate release tablet 15 mg PO Q8H PRN Breakthrough Pain 08/18/22 [History Last Taken Unknown] morphine 15 mg tablet,extended release 15 mg PO TID 08/18/22 [History Last Taken Unknown] prednisone 10 mg tablet 10 mg PO UD #33 tabs 08/18/22 [Rx Last Taken Unknown] Allergy/AdvReac Type Severity Reaction Status Date / Time mercury (elemental) Allergy Hives Verified 10/21/20 13:57 Sulfa (Sulfonamide Allergy Hives Verified 10/21/20 13:57 Antibiotics) Opioids-Methadone and Related AdvReac Unknown Vomiting Verified 08/18/22 11:02 Surgical History History of bladder surgery History of tubal ligation Social History Smoking Status: Current every day smoker tobacco type: cigarettes alcohol intake: never ROS ROS ED ROS Narrative A complete review of systems was performed and is negative except as documented in the history of present illness. Some specific details below. Constitutional: No recent fevers or chills. No rigors. Patient has not generally felt ill. EYE: No discharge, but see history of present illness. ENT: No difficulty swallowing. No swelling. No sinus pressure or pain. No nasal discharge. No change in hearing. No ear pain. CV: No chest pain, pressure or aching. No palpitations or irregular beats. Patient has not been presyncopal or syncopal. Respiratory: No trouble breathing. Occasional cough but no sputum production. No wheezing. No pain with breathing. GI: No abdominal pain. She occasionally has had some mild nausea. But no vomiting diarrhea. She is still eating and drinking. No blood in stool. : No frequency dysuria or hematuria. Musculoskeletal: No recent trauma. No pains. No swelling. Skin: No rash. No diaphoresis. Neuro: No weakness or numbness other than transient tingling of her left cheek area.. No difficulty with speaking. No difficulty understanding speech. No visual loss. Please see history of present illness also. Endocrine: No polyuria or polydipsia. EXAM Physical Exam Narrative Exam Narrative: CONSTITUTIONAL: Patient is nontoxic in appearance. The patient looks comfortable. She is holding an ice pack on her forehead. HEENT: No notable trauma. Mucous membranes moist. No sinus tenderness. Tympanic membranes are normal. No temporal artery tenderness on either side. No facial rashes or swelling. No vesicles. Negative Alberts sign. EYES: No conjunctival injection. No proptosis. No pain with range of motion. Funduscopic exam shows no marked abnormalities. Pupils are about 2-1/2 mm bilaterally. They are reactive. They look the same. She does have some photophobia on exam though. NECK: No meningismus. No JVD. Range of motion is normal looking up down left and right without discomfort. Although she has chronic neck pain, this does not seem to be her cause of symptoms today. CARDIOVASCULAR: Regular rate. Regular rhythm. No notable murmur. No JVD. RESPIRATORY: No respiratory distress. Breathing is unlabored. No wheezes. No rhonchi. No rales. No pain with a deep breath. GASTROINTESTINAL: Not distended. Bowel sounds are normal. No tenderness. No guarding. No rebound. No palpable mass. No bruit. GENITOURINARY: No tenderness over the bladder. No CVA tenderness. MUSCULOSKELETAL: Atraumatic. No peripheral edema. No cord. No tenderness along the deep venous system. No asymmetry. NEUROLOGICAL: Patient is alert and oriented. No focal deficit noted. NIH stroke scale is 0. SKIN: No noted rashes. No diaphoresis. No vesicles noted. PSYCHIATRIC: Patient is calm. Mood is appropriate. Const Vital Signs: 11/27/22 01:05 Temperature 98.5 F Temperature Source Oral Pulse Rate 67 Respiratory Rate 18 Blood Pressure 157/72 H Blood Pressure Mean 100 Pulse Ox 95 Oxygen Delivery Method Room Air [facility] MDM MDM Narrative Medical decision making narrative: We checked ocular eye pressures. I placed tetracaine 2 drops in each eye. It took some difficulty holding her lids open. But then she was able to help hold these open. Pressures on the left were 4, 8, 8 and 9. Pressures on the right were 10, 10 and 12. Pupils are reactive. There is no injection or proptosis. Patient's CBC is normal including white count hemoglobin and platelets. Her ESR is normal at 71. Electrolytes showed some mild elevation in the creatinine at 1.37. Glucose was only slightly high at 153. This can be rechecked. My independent interpretation of the CT of her head shows no sign of mass or bleeding. I am pending final reading. When I went in to do the Ernesto-Pen exam, the patient was resting. She is feeling better. She still has some pressure in the area but is markedly improved. She is actually resting and even falls asleep during exam. Final reading CT scan of the head is also negative. Patient is resting quietly and comfortable. I again talk with her and the family about all the results. I see no sign of temporal arteritis, acute angle-closure glaucoma, mass or bleeding. No sign of stroke. She has had a history of migraines and this might represent a migraine. But she is doing better at this time. Lab Data Attestation: I reviewed the patient's lab results. Labs: Laboratory Results - last 24 hr 11/27/22 11/27/22 01:15 01:15 WBC 8.9 RBC 4.26 Hgb 13.8 Hct 43.4 MCV 101.9 H MCH 32.4 H MCHC 31.8 L RDW Std Deviation 53.7 H RDW Coeff of Dwaine 14.3 Plt Count 314 MPV 9.5 Immature Gran % (Auto) 0.300 Neut % (Auto) 67.4 Lymph % (Auto) 20.3 [place] % (Auto) 7.2 Eos % (Auto) 4.2 Baso % (Auto) 0.6 Absolute Neuts (auto) 6.0 Absolute Lymphs (auto) 1.80 Nucleated RBC % 0 ESR 21 Sodium 141 Potassium 3.9 Chloride 111 H Carbon Dioxide 26.0 Anion Gap 4 L BUN 13 Creatinine 1.37 H Estim Creat Clear Calc 33.24 Est GFR (MDRD) Af Amer 50 L Est GFR (MDRD) Non-Af 41 L BUN/Creatinine Ratio 9.5 L Glucose 153 H Calcium 9.5 Radiography Diagnostic Testing: Clinical Impression(s) from Imaging Studies Brain CT 11/27/22 02:19 IMPRESSION: Negative Brain CT without contrast. Electronically Signed: Gunnar Armstrong MD at 2:43 EDT , Discharge Plan Triage Chief Complaint: Headache ED Provider: Braxton Douglas Dx/Rx/DC Orders Clinical Impression: Headache, Nausea Instructions: ED Headache Unspecified Prescriptions: No Action ipratropium-albuterol 1 PUFF inhaler 1 puff inhalation Q6H PRN PRN (Reason: Cough) Label Comments: INHALE 1 PUFF BY MOUTH FOUR TIMES DAILY NEEDED FOR SHORTNESS OF BREATH ondansetron HCl [Zofran] 4 mg tablet 4 mg PO Q6H PRN (Reason: nausea and vomiting) Qty: 10 0RF chlorzoxazone 500 mg tablet 750 mg PO Q8H Label Comments: TAKE 1 &1/2 (ONE & ONE-HALF) TABLETS BY MOUTH THREE TIMES DAILY NEEDED FOR MUSCLE SPASM morphine 15 mg tablet extended release 15 mg PO TID Label Comments: TAKE 1 TABLET BY MOUTH EVERY 8 HOURS FOR PAIN morphine 15 mg tablet 15 mg PO Q8H PRN (Reason: Breakthrough Pain) Label Comments: TAKE 1 TABLET BY MOUTH THREE TIMES DAILY NEEDED FOR PAIN FOR UP 30 DAYS budesonide-formoterol [Symbicort] 80-4.5 mcg/actuation Hfa Aerosol Inhaler 2 puff INHALATION BID Combivent Respimat 20-100 mcg/actuation Mist 1 puff INHALATION Q4H prednisone 10 mg tablet 10 mg PO UD Qty: 33 0RF Rx Instructions: Take 4 tablets daily for 3 days, then 3 daily for 3 days, then 2 daily for 3 days, then 1 a day for 3 days then 1 QOD for 3 doses. doxycycline monohydrate 100 mg capsule 100 mg PO BID Qty: 14 0RF albuterol sulfate [Ventolin HFA] 90 mcg/actuation HFA aerosol inhaler 1 - 2 puff inhalation Q4H PRN PRN (Reason: Wheezing) Qty: 1 0RF Primary Care Provider: Tracie Patel Referrals: Tracie Patel, JOSE-C [Primary Care Provider] - 1-2 Days if not improving Disposition Disposition: Home, Self Care
[2022-11-27] MEDS: proCHLORPERazine 10 MG/2 ML Vial IV (01:26)
[2022-11-27] MEDS: DiphenhydrAMINE 50 MG/ML Syringe IV (01:27)
[2022-11-27] MEDS: Tetracaine 0.5% Ophthalmic Bottle 1 DRP OPHTHALMIC (01:27)
[2022-11-27] MEDS: 0.9% Normal Saline 1,000 ML 1000 ML IV (01:32)
[2022-11-27 01:38] LABS: Basophil# 0.05 X10^3/uL; Basophil% 0.6 % (0-1); Eosinophil# 0.37 X10^3/uL; Eosinophils% 4.2 % (0-5); Hematocrit 43.4 % (37-47); Hemoglobin 13.8 g/dL (12.0-15.0); Lymphocyte % 20.3 % (19-41); Mean Corp Hgb Conc 31.8 g/dL (32-36); Mean Corpuscular Hgb 32.4 pg (27.0-32.0); Mean Corpuscular Volume 101.9 fL (81-99); Mean Platelet Vol. 9.5 fl (6.2-12.0); Monocyte# 0.64 X10^3/uL; Monocyte% 7.2 % (0-10); NRBC Flagged by Analyzer 0 % (0-5); Neutrophil # 5.97 X10^3/uL (2.7-7.7); Neutrophil % 67.4 % (47-70); Platelet Count 314 K/mm3 (150-450); RBC Distribution Width CV 14.3 % (11.6-14.6); RBC Distribution Width SD 53.7 fl (35.1-43.9); Red Blood Count 4.26 M/mm3 (4.2-5.4); White Blood Count 8.9 K/mm3 (4.4-11.0)
[2022-11-27 01:48] LABS: Anion Gap 4 (5-15); BUN 13 mg/dL (7-18); BUN/Creat Ratio 9.5 RATIO (10-20); Calcium,Total 9.5 mg/dL (8.5-10.1); Chloride 111 mmol/L (98-107); Creatinine, Serum 1.37 mg/dL (0.55-1.02); EST Glomerular Filtration Rate 41 mL/min (>60); Erythrocyte Sedimentation Rate 21 mm/hr (0-30); Est Glom Filt Rate - Afr Amer 50 mL/min (>60); Estimated Creatinine Clearance 33.24 ml/min; Glucose 153 mg/dL (74-106); Potassium 3.9 mmol/L (3.5-5.1); Sodium Level 141 mmol/L (136-145)
--- NOTE | 2022-11-27 02:19 | CT_ITS ---
INDICATION: headache benhind left eye EXAMINATION: CT BRAIN - CT Head or Brain W/O Contrast Injection TECHNIQUE: Multiple axial images were obtained of the head without intravenous contrast. A radiation dose optimization technique was used for this scan. IV Contrast dosage and agent: None. RADIATION DOSAGE (If Supplied By Facility): CTDIvol = ( 44.99 ) mGy, DLP = ( 796.11 ) mGycm COMPARISON: FINDINGS: BRAIN PARENCHYMA: No intra- or extra-axial hemorrhage. No evidence of acute infarct. No intracranial mass or mass effect. There is preservation of the campos/white matter interface. Posterior fossa structures are unremarkable. CSF SPACES: Appropriate for age. No hydrocephalus. Basal cisterns are patent. CALVARIUM, SKULL BASE, PARANASAL SINUSES AND MASTOID AIR CELLS: Clear. No discrete lytic or blastic abnormalities. ORBITS: Both globes, extraocular muscles, optic nerves and retrobulbar fat appear unremarkable. ASPECTS Score for Acute Strokes: 10 CT/Brain/Head without Contrast IMPRESSION: Negative Brain CT without contrast. Electronically Signed: Gunnar Armstrong MD at 2:43 EDT ,
[2022-11-27 03:04] VITALS: BP 129/75; PULSE 59; RESP 16; O2SAT 97
== END 2022-11-27 03:23 | disposition home or self-care (01) ==
PROVIDERS: Emergency Provider Emergency Medicine; PCP Nurse Practitioner Family; Visit Provider Emergency Medicine
DX: R51.9 Headache, unspecified (principal); R11.0 Nausea; F17.210 Nicotine dependence, cigarettes, uncomplicated
CPT/HCPCS: 70450; 80048; 85025; 85652; 96361; 96374; 96375; 99283; J7030; A4216